=== PATIENT | female | born 1940 | race African-American/Black ===

== ENCOUNTER 2017-12-22 01:06 | Inpatient (IN) | payer MEDICARE, MEDICAID ==
[~2017-12-22] VITALS: Ht 160 cm; Wt 63.5 kg
[~2017-12-22 01:06] MED LIST: ATOR20TA PO; METO25TA6 PO
[2017-12-22] MEDS ORDERED: NITROGLYCERIN OINT 1GM/INCH UDPKT TD STA (01:33)
[2017-12-22 02:08] LABS: BASOPHILS % 0.5 % (0.0-2.0); EOSINOPHILS % 1.4 % (0.0-5.0); HEMATOCRIT. 35.1 % (36.0-48.0); HEMOGLOBIN. 11.9 g/dL (12.0-16.0); LYMPHOCYTES % 29.3 % (20.0-50.0); MEAN CORPUSCULAR HEMOGLOBIN 30.5 pg (28.0-32.0); MEAN CORPUSCULAR VOLUME 90.3 fL (81.0-99.0); MEAN PLATELET VOLUME 8.3 fl (7.4-10.4); MONOCYTES % 4.8 % (2.0-8.0); PLATELET 187 x1000/uL (130-400); RED BLOOD CELL COUNT 3.89 mill/uL (4.2-5.4); RED CELL DISTRIBUTION WIDTH 15.4 % (11.6-14.6)
[2017-12-22 02:15] LABS: INR 1.1; PARTIAL THROMBOPLASTIN TIME 23.6 sec (23.4-31.0)
[2017-12-22 02:16] LABS: CHLORIDE 108 mEq/L (98-107)
[2017-12-22 05:00] VITALS: BP 116/71
[2017-12-22 06:22] VITALS: BP 161/57
[2017-12-22 08:27] VITALS: BP 143/80
[2017-12-22] MEDS: DIPHENHYDRAMINE 50MG/ML VIAL IV PRN ×2 (09:04→18:44)
[2017-12-22] MEDS: KETOROLAC 30MG/ML VIAL IV PRN ×2 (09:04→21:17)
[2017-12-22 10:08] LABS: BASOPHILS % 0.8 % (0.0-2.0); EOSINOPHILS % 1.8 % (0.0-5.0); HEMATOCRIT. 35.1 % (36.0-48.0); HEMOGLOBIN. 11.9 g/dL (12.0-16.0); LYMPHOCYTES % 44.8 % (20.0-50.0); MEAN CORPUSCULAR HEMOGLOBIN 30.5 pg (28.0-32.0); MEAN CORPUSCULAR VOLUME 90.1 fL (81.0-99.0); MEAN PLATELET VOLUME 8.5 fl (7.4-10.4); MONOCYTES % 5.5 % (2.0-8.0); NEUTROPHILS % 47.1 % (40.0-76.0); PLATELET 184 x1000/uL (130-400); RED BLOOD CELL COUNT 3.89 mill/uL (4.2-5.4); RED CELL DISTRIBUTION WIDTH 15.7 % (11.6-14.6)
[2017-12-22 10:13] LABS: CHLORIDE 109 mEq/L (98-107)
[2017-12-22 10:22] LABS: CREATINE KINASE 44 IU/L (26-192)
[2017-12-22 10:24] LABS: CREATINE KINASE MB FRACTION 0.8 ng/mL (0.5-3.6)
[2017-12-22 12:43] VITALS: BP 132/72
[2017-12-22] MEDS: METOPROLOL TARTRATE 25MG TABLET PO SCH ×2 (14:35→21:23)
[2017-12-22 16:00] VITALS: BP 107/65
[2017-12-22 20:00] VITALS: BP 122/73
[2017-12-22] MEDS: ATORVASTATIN CALCIUM 20MG TABLET PO SCH (21:23)
[2017-12-23] VITALS: BP 121/73
[2017-12-23 04:00] VITALS: BP 103/60
[2017-12-23 07:43] LABS: CHLORIDE 108 mEq/L (98-107)
[2017-12-23 08:00] VITALS: BP 128/63
[2017-12-23] MEDS: KETOROLAC 30MG/ML VIAL IV PRN (08:01)
[2017-12-23] MEDS: METOPROLOL TARTRATE 25MG TABLET PO SCH ×2 (08:29→21:08)
[2017-12-23 12:00] VITALS: BP 93/47
[2017-12-23 16:00] VITALS: BP 105/64
[2017-12-23] MEDS: ATORVASTATIN CALCIUM 20MG TABLET PO SCH (21:08)
== END 2017-12-23 21:30 | DRG 206 ==
LOC: ER 01:06 → 7WST 02:37 → EDBEDREQ 02:39 → EDBEDREQTM 02:39 → ENRESERV 03:39 → CANBEDREQ 12-23 02:01
PROVIDERS: ADMIT Internal Medicine; ATTEND Internal Medicine
DX: M94.0 Chondrocostal junction syndrome [Tietze] (principal); D64.9 Anemia, unspecified; E78.5 Hyperlipidemia, unspecified; E87.6 Hypokalemia; F17.200 Nicotine dependence, unspecified, uncomplicated; I10 Essential (primary) hypertension; Z76.5 Malingerer [conscious simulation]; Z91.19 Patient's noncompliance with other medical treatment and regimen; Z88.6 Allergy status to analgesic agent; Z79.899 Other long term (current) drug therapy; Z98.51 Tubal ligation status
CPT/HCPCS: 36415; 71045; 80048; 80053; 82550; 82553; 83690; 84484; 85025; 85610; 85730; 93005; 99285; C1893; J1200; J1885

== ENCOUNTER 2017-12-24 00:53 | Emergency (ER) | payer MEDICARE, MEDICAID ==
[~2017-12-24] VITALS: Ht 167.6 cm; Wt 64.0 kg
[2017-12-24 01:24] VITALS: BP 130/73
== END 2017-12-24 02:48 | disposition left against medical advice (07) ==
LOC: ER 00:53
DX: R07.9 Chest pain, unspecified (principal); I10 Essential (primary) hypertension; E78.00 Pure hypercholesterolemia, unspecified; E78.5 Hyperlipidemia, unspecified; Z88.5 Allergy status to narcotic agent
CPT/HCPCS: 36415; 84484; 93005; 99285

== ENCOUNTER 2018-11-11 00:21 | Inpatient (IN) | payer MEDICARE, MEDICAID ==
[~2018-11-11] VITALS: Ht 157.5 cm; Wt 81.6 kg
[2018-11-11] MEDS ORDERED: ONDANSETRON HCL 4MG/2ML INJ IV STA (01:05)
[2018-11-11] MEDS ORDERED: MORPHINE SULFATE 4 MG/ML CPJ (NOT FOR IM USE) IV STA (01:05)
[2018-11-11] MEDS ORDERED: DIPHENHYDRAMINE 25MG CAPSULE PO ONE (01:15)
[2018-11-11] MEDS ORDERED: NITROGLYCERIN OINT 1GM/INCH UDPKT TD ONE (01:15)
[2018-11-11 02:28] LABS: BASOPHILS % 0.5 % (0.0-2.0); EOSINOPHILS % 2.5 % (0.0-5.0); HEMATOCRIT. 33.6 % (36.0-48.0); HEMOGLOBIN. 11.2 g/dL (12.0-16.0); LYMPHOCYTES % 46.1 % (20.0-50.0); MEAN CORPUSCULAR VOLUME 89.6 fL (81.0-99.0); MEAN PLATELET VOLUME 8.2 fl (7.4-10.4); MONOCYTES % 6.6 % (2.0-8.0); NEUTROPHILS % 44.3 % (40.0-76.0); PLATELET 197 x1000/uL (130-400); RED BLOOD CELL COUNT 3.75 mill/uL (4.2-5.4); RED CELL DISTRIBUTION WIDTH 16.2 % (11.6-14.6)
[2018-11-11 02:34] LABS: CHLORIDE 109 mEq/L (98-107)
[2018-11-11 02:38] LABS: PROTHROMBIN TIME 10.4 sec (9.1-11.1)
[2018-11-11] MEDS ORDERED: ENOXAPARIN 100MG/ML SYR SUBCUT ONE (07:00)
[2018-11-11] MEDS ORDERED: ENOXAPARIN 100MG/ML SYR SUBCUT SCH (07:50)
[2018-11-11] MEDS: HYDROCODONE/ACETAMINOPHEN 5/325MG TABLET PO PRN (10:46)
[2018-11-11 12:35] VITALS: BP 137/74
[2018-11-11] MEDS ORDERED: ACETAMINOPHEN WITH CODEINE 300/30MG TABLET PO PRN (14:45)
[2018-11-11] MEDS ORDERED: DIPHENHYDRAMINE 50MG/ML VIAL IV PRN (14:45)
[2018-11-11] MEDS: ASPIRIN 81MG EC TABLET PO SCH (15:07)
[2018-11-11] MEDS: METOPROLOL TARTRATE 25MG TABLET PO SCH ×2 (15:07→21:04)
[2018-11-11 16:00] VITALS: BP 168/93
[2018-11-11] MEDS: ACETAMINOPHEN WITH CODEINE 300/30MG TABLET PO PRN ×2 (18:36→23:01)
[2018-11-11 20:00] VITALS: BP 167/73
[2018-11-11 20:03] LABS: CREATINE KINASE 54 IU/L (26-192)
[2018-11-11] MEDS: ATORVASTATIN CALCIUM 20MG TABLET PO SCH (21:04)
[2018-11-12] VITALS (7 sets, daily range): BP systolic 20–143; BP diastolic 59–111
[2018-11-12 08:34] LABS: EOSINOPHILS % 8.1 % (0.0-5.0); HEMATOCRIT. 34.6 % (36.0-48.0); HEMOGLOBIN. 11.7 g/dL (12.0-16.0); LYMPHOCYTES % 41.6 % (20.0-50.0); MEAN CORPUSCULAR HEMOGLOBIN 29.9 pg (28.0-32.0); MEAN CORPUSCULAR VOLUME 88.8 fL (81.0-99.0); MEAN PLATELET VOLUME 8.3 fl (7.4-10.4); MONOCYTES % 5.9 % (2.0-8.0); NEUTROPHILS % 43.4 % (40.0-76.0); PLATELET 192 x1000/uL (130-400); RED CELL DISTRIBUTION WIDTH 15.7 % (11.6-14.6)
[2018-11-12] MEDS: METOPROLOL TARTRATE 25MG TABLET PO SCH ×2 (09:00→21:07)
[2018-11-12] MEDS: ASPIRIN 81MG EC TABLET PO SCH (09:00)
[2018-11-12 09:23] LABS: CHLORIDE 109 mEq/L (98-107)
[2018-11-12] MEDS: FUROSEMIDE 40MG/4ML VIAL IVP SCH (11:42)
[2018-11-12] MEDS: ENOXAPARIN 40MG/0.4ML SYR SUBCUT SCH (11:43)
[2018-11-12] MEDS: ACETAMINOPHEN WITH CODEINE 300/30MG TABLET PO PRN ×2 (11:49→15:59)
[2018-11-12] MEDS: ATORVASTATIN CALCIUM 20MG TABLET PO SCH (21:07)
[2018-11-13] VITALS: BP 156/75
[2018-11-13 04:00] VITALS: BP 136/72
[2018-11-13] MEDS: ACETAMINOPHEN WITH CODEINE 300/30MG TABLET PO PRN ×2 (04:59→10:04)
[2018-11-13 08:00] VITALS: BP 117/69
[2018-11-13] MEDS: FUROSEMIDE 40MG/4ML VIAL IVP SCH (10:03)
[2018-11-13] MEDS: METOPROLOL TARTRATE 25MG TABLET PO SCH (10:03)
[2018-11-13] MEDS: ASPIRIN 81MG EC TABLET PO SCH (10:03)
[2018-11-13 11:17] LABS: BASOPHILS % 0.7 % (0.0-2.0); HEMATOCRIT. 37.8 % (36.0-48.0); HEMOGLOBIN. 12.7 g/dL (12.0-16.0); LYMPHOCYTES % 36.4 % (20.0-50.0); MEAN CORPUSCULAR HEMOGLOBIN 29.9 pg (28.0-32.0); MEAN CORPUSCULAR VOLUME 88.7 fL (81.0-99.0); MEAN PLATELET VOLUME 8.1 fl (7.4-10.4); MONOCYTES % 6.3 % (2.0-8.0); NEUTROPHILS % 52.6 % (40.0-76.0); PLATELET 208 x1000/uL (130-400); RED BLOOD CELL COUNT 4.26 mill/uL (4.2-5.4); RED CELL DISTRIBUTION WIDTH 15.7 % (11.6-14.6)
[2018-11-13 11:29] LABS: CHLORIDE 106 mEq/L (98-107)
[2018-11-13] MEDS: HYDROCODONE/ACETAMINOPHEN 5/325MG TABLET PO PRN (12:35)
[2018-11-13] MEDS: ENOXAPARIN 40MG/0.4ML SYR SUBCUT SCH (12:35)
[2018-11-13 12:40] VITALS: BP 121/77
[2018-11-13 16:08] VITALS: BP 92/56
[2018-11-13] MEDS ORDERED: ZOLPIDEM TARTRATE 5MG TABLET PO PRN (21:00)
== END 2018-11-13 16:40 | DRG 206 ==
LOC: ER 00:21 → 8WST 04:00 → EDBEDREQ 04:01 → EDBEDREQTM 04:01 → ENRESERV 11:32
PROVIDERS: ADMIT Internal Medicine; ATTEND Internal Medicine
DX: M94.0 Chondrocostal junction syndrome [Tietze] (principal); I24.9 Acute ischemic heart disease, unspecified; R07.81 Pleurodynia; I10 Essential (primary) hypertension; E78.5 Hyperlipidemia, unspecified; D64.9 Anemia, unspecified; M79.89 Other specified soft tissue disorders; R73.9 Hyperglycemia, unspecified; I25.10 Atherosclerotic heart disease of native coronary artery without angina pectoris; D72.819 Decreased white blood cell count, unspecified; K21.9 Gastro-esophageal reflux disease without esophagitis; F03.90 Unspecified dementia, unspecified severity, without behavioral disturbance, psychotic disturbance, mood disturbance, and anxiety; Z82.49 Family history of ischemic heart disease and other diseases of the circulatory system; Z88.5 Allergy status to narcotic agent; Z79.899 Other long term (current) drug therapy
CPT/HCPCS: 36415; 71045; 80048; 82550; 83735; 83880; 84484; 85379; 93005; 93306; 93970; 96374; 96375; 99285; J1200; J1650; J1940; J2270; J2405; Q0163

== ENCOUNTER 2018-11-17 20:50 | Emergency (ER) | payer MEDICARE, MEDICAID ==
[~2018-11-17] VITALS: Ht 170.2 cm; Wt 80.0 kg
[2018-11-17] MEDS ORDERED: ASPIRIN 325MG EC TABLET PO ONE (21:30)
[2018-11-17 22:57] LABS: BASOPHILS % 0.7 % (0.0-2.0); EOSINOPHILS % 3.1 % (0.0-5.0); HEMATOCRIT. 36.4 % (36.0-48.0); HEMOGLOBIN. 12.2 g/dL (12.0-16.0); LYMPHOCYTES % 36.3 % (20.0-50.0); MEAN CORPUSCULAR HEMOGLOBIN 30.4 pg (28.0-32.0); MEAN CORPUSCULAR VOLUME 90.5 fL (81.0-99.0); MEAN PLATELET VOLUME 8.3 fl (7.4-10.4); MONOCYTES % 4.4 % (2.0-8.0); NEUTROPHILS % 55.5 % (40.0-76.0); PLATELET 189 x1000/uL (130-400); RED BLOOD CELL COUNT 4.02 mill/uL (4.2-5.4); RED CELL DISTRIBUTION WIDTH 15.6 % (11.6-14.6)
[2018-11-17 22:59] LABS: CHLORIDE 108 mEq/L (98-107)
[2018-11-18] MEDS ORDERED: ASPIRIN 325MG EC TABLET PO ONE (00:30)
[2018-11-18] MEDS ORDERED: ACETAMINOPHEN 325MG TABLET PO ONE (00:30)
[2018-11-18 04:56] VITALS: BP 118/72
== END 2018-11-18 05:07 | disposition home or self-care (01) ==
LOC: ER 20:50
DX: R07.89 Other chest pain (principal); I10 Essential (primary) hypertension; I25.2 Old myocardial infarction; E78.00 Pure hypercholesterolemia, unspecified; Z88.5 Allergy status to narcotic agent
CPT/HCPCS: 36415; 71045; 83880; 84484; 93005; 99284

== ENCOUNTER 2018-12-14 23:44 | Inpatient (IN) | payer MEDICARE, MEDICAID ==
[~2018-12-14] VITALS: Ht 160 cm; Wt 79.0 kg
[2018-12-15] MEDS ORDERED: ASPIRIN 81MG TABLET PO ONE (00:45)
[2018-12-15] MEDS ORDERED: NITROGLYCERIN OINT 1GM/INCH UDPKT TD ONE (00:45)
[2018-12-15 01:10] LABS: BASOPHILS % 0.5 % (0.0-2.0); EOSINOPHILS % 2.3 % (0.0-5.0); HEMATOCRIT. 38.3 % (36.0-48.0); LYMPHOCYTES % 35.3 % (20.0-50.0); MEAN CORPUSCULAR HEMOGLOBIN 30.9 pg (28.0-32.0); MEAN CORPUSCULAR VOLUME 91.1 fL (81.0-99.0); MONOCYTES % 6.4 % (2.0-8.0); NEUTROPHILS % 55.5 % (40.0-76.0); PLATELET 195 x1000/uL (130-400); RED BLOOD CELL COUNT 4.21 mill/uL (4.2-5.4); RED CELL DISTRIBUTION WIDTH 15.8 % (11.6-14.6)
[2018-12-15 01:11] LABS: CHLORIDE 108 mEq/L (98-107)
[2018-12-15] MEDS ORDERED: DIPHENHYDRAMINE 50MG/ML VIAL IV ONE ×2 (02:45→04:15)
[2018-12-15] MEDS ORDERED: MORPHINE SULFATE 2 MG/ML CPJ (NOT FOR IM USE) IV ONE (02:45)
[2018-12-15] MEDS ORDERED: MORPHINE SULFATE 4 MG/ML CPJ (NOT FOR IM USE) IV NR (03:15)
[2018-12-15 12:18] VITALS: BP 151/91
[2018-12-15 14:00] VITALS: BP 141/78
[2018-12-15] MEDS ORDERED: ACETAMINOPHEN 325MG TABLET PO PRN (14:00)
[2018-12-15 16:00] VITALS: BP 136/75
[2018-12-15] MEDS ORDERED: ONDANSETRON HCL 4MG TABLET PO PRN (16:00)
[2018-12-15 18:00] VITALS: BP 145/81
[2018-12-15 20:00] VITALS: BP 123/67
[2018-12-15] MEDS: METOPROLOL TARTRATE 25MG TABLET PO SCH (20:03)
[2018-12-15] MEDS ORDERED: ATORVASTATIN CALCIUM 20MG TABLET PO SCH (21:00)
[2018-12-15] MEDS: IBUPROFEN 800MG TABLET PO PRN (21:22)
[2018-12-15 22:00] VITALS: BP 131/78
[2018-12-16] VITALS (9 sets, daily range): BP systolic 104–141; BP diastolic 56–79
[2018-12-16 08:13] LABS: HEMATOCRIT 37.5 % (36.0-48.0); HEMOGLOBIN 12.8 g/dL (12.0-16.0); MEAN CORPUSCULAR HEMOGLOBIN 31.4 pg (28.0-32.0); RED BLOOD CELL COUNT 4.07 mill/uL (4.2-5.4); RED CELL DISTRIBUTION WIDTH 16.1 % (11.6-14.6)
[2018-12-16] MEDS: METOPROLOL TARTRATE 25MG TABLET PO SCH (08:28)
[2018-12-16 08:37] LABS: CHLORIDE 107 mEq/L (98-107)
[2018-12-16 08:46] LABS: CREATINE KINASE MB FRACTION < 1.0 ng/mL (0.5-3.6)
[2018-12-16] MEDS ORDERED: ASPIRIN 81MG TABLET PO SCH (09:00)
[2018-12-16] MEDS: IBUPROFEN 800MG TABLET PO PRN (09:30)
[2018-12-16 09:53] LABS: PLATELET 243 x1000/uL (130-400)
== END 2018-12-16 16:38 | disposition home or self-care (01) | DRG 206 ==
LOC: ER 23:44 → 3WST 12-15 02:40 → EDBEDREQ 12-15 02:45 → EDBEDREQTM 12-15 02:45 → ENRESERV 12-15 10:29
PROVIDERS: ADMIT Internal Medicine; ATTEND Internal Medicine
DX: M94.0 Chondrocostal junction syndrome [Tietze] (principal); E78.5 Hyperlipidemia, unspecified; I10 Essential (primary) hypertension; K21.9 Gastro-esophageal reflux disease without esophagitis; Z59.0 Homelessness; Z82.49 Family history of ischemic heart disease and other diseases of the circulatory system; Z76.5 Malingerer [conscious simulation]; Z88.5 Allergy status to narcotic agent; Z79.899 Other long term (current) drug therapy; I25.2 Old myocardial infarction
CPT/HCPCS: 36415; 71045; 80048; 82553; 83880; 84484; 85027; 85379; 93005; 96374; 96375; 99285; J1200; J2270